=== PATIENT | female | born 1965 | race African-American/Black ===

== ENCOUNTER 2016-10-11 12:00 | Emergency (ER) | payer OTHER ==
[~2016-10-11] VITALS: Ht 157.5 cm; Wt 62.1 kg
[~2016-10-11 12:00] MED LIST: FIORICET1 EA ORAL; IBUPROFEN600 MG ORAL; NORCO 5-325 TA1 EACH PO; PREDNISONE20 MG ORAL; SOMA350 MG PO; TRAMADOL HCL50 MG ORAL; ZITHROMAX500 MG PO
[2016-10-11] MEDS ORDERED: HydrOXYzine 25mg tab ORAL ONE (14:00)
--- NOTE | 2016-10-11 14:01 | Emergency Room Report ---
History of Present Illness General Chief Complaint: Skin Rash/Abscess Source: Patient Present Illness HPI 51-year-old female presents emergency department complaining of itchy and painful rash over the fingers bilaterally x2 weeks. Patient states she's been applying cream however there's been no relief. Patient states that over to the knuckles her skin is cracked open and she is not up-to-date with tetanus. Patient denies discharge or erythema. Patient denies nausea vomiting fevers or chills. Patient denies rash elsewhere on the body.Denies CP, Palpitations, LOC , AMS, dizziness, Changes in Vision, Sensation, paresthesias, or a sudden severe headache. Allergies: Coded Allergies: No Known Allergies (Verified Allergy, Unknown, 06/05/10) Patient History Past Medical History: see triage record Past Surgical History: none Pertinent Family History: none Now: No Immunizations: UTD Reviewed Nursing Documentation: PMH: Agreed, PSxH: Agreed Nursing Documentation-PMH Past Medical History: No Stated History Hx Neurological Problems: Yes - herniated disc Review of Systems All Other Systems: negative except mentioned in HPI Physical Exam Vital Signs Date Time Temp Pulse Resp B/P Pulse Ox O2 Delivery O2 Flow Rate FiO2 10/11/16 12:19 98.1 79 20 155/102 97 Room Air Sp02 EP Interpretation: reviewed, normal General Appearance: no apparent distress, alert, GCS 15, non-toxic Head: normocephalic, atraumatic Eyes: bilateral eye PERRL, bilateral eye normal inspection ENT: hearing grossly normal, normal pharynx, no angioedema, normal voice Neck: full range of motion, supple/symm/no masses Respiratory: chest non-tender, lungs clear, normal breath sounds, speaking full sentences Cardiovascular #1: regular rate, rhythm, no edema, normal capillary refill Genitourinary: no CVA tenderness Musculoskeletal: back normal, gait/station normal, normal range of motion, non- tender Neurologic: alert, oriented x3, responsive, motor strength/tone normal, sensory intact, speech normal Psychiatric: judgement/insight normal, memory normal, mood/affect normal, no suicidal/homicidal ideation Skin: normal color, warm/dry, well hydrated, rash - macerated rash consistent with dyshidrotic eczema noted to the extensor surgace of the digits bilaterally , no evidence of secondary infection at this time, not suggestive of infestation. Lymphatic: no adenopathy Medical Decision Making PA Attestation Dr. Austin is my supervising Physician whom patient management has been discussed with. Diagnostic Impression: Primary Impression: Dyshidrotic dermatitis ER Course 51-year-old female presents emergency department complaining of itchy and painful rash over the fingers bilaterally x2 weeks. Patient states she's been applying cream however there's been no relief. Patient states that over to the knuckles her skin is cracked open and she is not up-to-date with tetanus. Patient denies discharge or erythema. Patient denies nausea vomiting fevers or chills. Ddx considered but are not limited to cellulitis, scabies, shingles, varicella, dermatitis, urticaria, eczema, tinea Vital signs: are WNL, pt. is afebrile H&PE are most consistent with dyshidrotic dermatitis ORDERS: none required at this time, the diagnosis is clinical ED INTERVENTIONS: -Tetanus vaccination administered. DISCHARGE: At this time pt. is stable for d/c to home. Will provide printed patient care instructions, and any necessary prescriptions. Care plan and follow up instructions have been discussed with the patient prior to discharge. Last Vital Signs Date Time Temp Pulse Resp B/P Pulse Ox O2 Delivery O2 Flow Rate FiO2 10/11/16 12:19 98.1 79 20 155/102 97 Room Air Disposition: HOME, SELF-CARE Condition: Stable Scripts Hydroxyzine Hcl (HYDROXYZINE HCL) 25 Mg Tablet 25 MG PO TID, #20 TAB Prov: Meme Nicholas P.A. 10/11/16 Bacitracin Zinc/Polymyx B Sulf (HM DOUBLE ANTIBIOTIC OINTMENT) 28.4 Gm Oint...g. 1 APPLIC TP BID, #28.4 GM Prov: Meme Nicholas P.A. 10/11/16 Hydrocortisone 2% Cream (ANTI-ITCH 2% CREAM) Y Cr 1 APPLIC TP BID, #28 GM Prov: Meme Nicholas P.A. 10/11/16 Triamcinolone Acet (Triamcinolone Acetonide) 15 Gm Cream..g. 1 APPLIC TP BID, #15 GM Prov: Meme Nicholas P.A. 10/11/16 Referrals: [employer]EE [facility],REFERRIN (PCP) Patient Instructions: Eczema, Hand Dermatitis, [id number] Additional Instructions: Take medications as directed. Follow up with PCP in 3-5 days Return sooner to ED if new symptoms occur, or current symptoms become worse. - Please note that this Emergency Department Report was dictated using [employer] tank worker technology software, occasionally this can lead to erroneous entry secondary to interpretation by the dictation equipment. Meme Nicholas Oct 11, 2016 14:01
[2016-10-11] MEDS ORDERED: ANTI-ITCH28 G1 TP (14:02)
[2016-10-11] MEDS ORDERED: KENALOG 0.5% CR15 GM TP (14:02)
[2016-10-11] MEDS ORDERED: HM DOUBLE ANT28.4 G1 TP (14:02)
[2016-10-11] MEDS ORDERED: HYDROXYZINE HCL25 M1 PO (14:06)
[2016-10-11] MEDS ORDERED: TdaP Vaccine 0.5ml Syr IM ONE (14:15)
[2016-10-11 14:25] VITALS: BP 145/86
== END 2016-10-11 14:25 | disposition home or self-care (01) ==
LOC: EMR 13:35
DX: L30.1 Dyshidrosis [pompholyx] (principal); Z23 Encounter for immunization
CPT/HCPCS: 90471; 90715; 99284

== ENCOUNTER 2017-11-09 18:55 | Emergency (ER) | payer MEDICAID, OTHER ==
[~2017-11-09] VITALS: Ht 170.2 cm; Wt 63.5 kg
[~2017-11-09 18:55] MED LIST changes: +ANTI-ITCH28 G1 TP; +HM DOUBLE ANT28.4 G1 TP; +HYDROXYZINE HCL25 M1 PO; +KENALOG 0.5% CR15 GM TP
[2017-11-09 19:15] VITALS: BP 129/83
[2017-11-09] MEDS ORDERED: Dexamethasone 4mg/ml vial IM ONE (19:30)
--- NOTE | 2017-11-09 19:30 | Emergency Room Report ---
History of Present Illness General Chief Complaint: Skin Rash/Abscess Source: Patient Present Illness HPI 52-year-old female presents to the emergency department complaining of itchy rash on the face, and upper extremities times several days. Patient reports that she has had itchy rash on her hand for several weeks before. Patient believes that she may be getting insect bites from her apartment. Denies pain. Denies lesions/rashes elsewhere on the body. Denies new medications or body washes or creams. Denies swelling of the lips, tongue , throat or airway. Denies wheezing, or shortness of breath. Denies recent travel, recent illness or ill contacts. denies blisters, oral lesions, or sloughing of the skin. She denies fevers or chills. Allergies: Coded Allergies: No Known Allergies (Verified Allergy, Unknown, 06/05/10) Patient History Past Medical History: see triage record Past Surgical History: none Pertinent Family History: none Now: No Reviewed Nursing Documentation: PMH: Agreed; PSxH: Agreed Nursing Documentation-PMH Past Medical History: No Stated History Hx Neurological Problems: Yes - herniated disc Review of Systems All Other Systems: negative except mentioned in HPI Physical Exam Vital Signs Date Time Temp Pulse Resp B/P (MAP) Pulse Ox O2 Delivery O2 Flow Rate FiO2 11/09/17 19:00 98.1 85 18 129/83 94 Room Air 98.1 Sp02 EP Interpretation: reviewed, normal General Appearance: no apparent distress, alert, GCS 15, non-toxic Head: normocephalic, atraumatic ENT: hearing grossly normal, no angioedema, normal voice, moist mucus membranes Neck: full range of motion Respiratory: chest non-tender, lungs clear, normal breath sounds, no wheezing, speaking full sentences Cardiovascular #1: regular rate, rhythm, no edema Musculoskeletal: back normal, gait/station normal, normal range of motion, non- tender Neurologic: alert, oriented x3, responsive, motor strength/tone normal, sensory intact, normal gait, speech normal, grossly normal Psychiatric: judgement/insight normal Skin: normal color, warm/dry, well hydrated, rash - generalized papular facial rash on the bilateral cheeks most consistent with urticaria, mild swelling noted just under the nose. pt. has several discrete patches on the right lateral UE and left forearm Lymphatic: no adenopathy Medical Decision Making PA Attestation Dr. Royal is my supervising Physician whom patient management has been discussed with. Diagnostic Impression: Primary Impression: Rash and other nonspecific skin eruption ER Course 52-year-old female presents to the emergency department complaining of itchy rash on the face, and upper extremities times several days. Patient reports that she has had itchy rash on her hand for several weeks before. Patient believes that she may be getting insect bites from her apartment. Denies pain. Denies lesions/rashes elsewhere on the body. Denies new medications or body washes or creams. Denies swelling of the lips, tongue , throat or airway. Denies wheezing, or shortness of breath. Denies recent travel, recent illness or ill contacts. denies blisters, oral lesions, or sloughing of the skin. She denies fevers or chills. Ddx considered but are not limited to cellulitis, scabies, shingles, varicella, dermatitis, urticaria, eczema, tinea, viral exanthem, SJS Vital signs: are WNL, pt. is afebrile H&PE are most consistent with Dermatitis, --generalized papular facial rash on the bilateral cheeks most consistent with urticaria, mild swelling noted just under the nose. pt. has several discrete patches on the right lateral UE and left forearm ORDERS: none required at this time, the diagnosis is clinical ED INTERVENTIONS: -[id number] IM -I do not identify an emergent condition at this time. With current presentation , pt. is stable for close outpatient follow up and conservative treatment. D/ w pt. to return promptly to ED with worsening or new symptoms.- Pt. (and or responsible green party) verbalizes' understanding and agreement with proposed treatment plan.proposed treatment plan. DISCHARGE: At this time pt. is stable for d/c to home. Will provide printed patient care instructions, and any necessary prescriptions. Care plan and follow up instructions have been discussed with the patient prior to discharge. Last Vital Signs Date Time Temp Pulse Resp B/P (MAP) Pulse Ox O2 Delivery O2 Flow Rate FiO2 11/09/17 19:00 98.1 85 18 129/83 94 Room Air 98.1 Disposition: HOME, SELF-CARE Condition: Stable Scripts Hydrocortisone (Hydrocortisone Cream 2.5%) Y Cream.appl 1 APPLIC TP BID, #56.6 GM Prov: Meme Nicholas 11/09/17 Hydroxyzine HCl (Hydroxyzine HCl) 25 Mg Tablet 25 MG ORAL FOUR TIMES A DAY, #30 TAB Prov: Meme Nicholas 11/09/17 Referrals: NON PHYSICIAN (PCP) Patient Instructions: Rash Additional Instructions: Take medications as directed. Follow up with a Primary Care Provider in 3-5 days, even if your symptoms have resolved. --Please review list of primary care clinics, if you do not already have a primary care provider Return sooner to ED if new symptoms occur, or current symptoms become worse. Do not drink alcohol, drive, or operate heavy machinery while taking Hydroxyzine as this may cause drowsiness. - Please note that this Emergency Department Report was dictated using [employer] transcription technology software, occasionally this can lead to erroneous entry secondary to interpretation by the dictation equipment. Meme Nicholas Nov 09, 2017 19:30
[2017-11-09] MEDS ORDERED: ATARAX25 MG ORAL (19:37)
[2017-11-09] MEDS ORDERED: HYDROCORTISONE30 G2 TP (19:37)
[2017-11-09 19:44] VITALS: BP 129/83
== END 2017-11-09 19:45 | disposition home or self-care (01) ==
LOC: EMR 19:19
DX: R21 Rash and other nonspecific skin eruption (principal)
CPT/HCPCS: 96372; 99284; J1100

== ENCOUNTER 2018-01-07 13:31 | Emergency (ER) | payer MEDICAID ==
[~2018-01-07] VITALS: Ht 177.8 cm; Wt 63.5 kg
[~2018-01-07 13:31] MED LIST changes: +ATARAX25 MG ORAL; +HYDROCORTISONE30 G2 TP
[2018-01-07] MEDS ORDERED: LORATADINE10 M2 PO (13:56)
[2018-01-07] MEDS ORDERED: ANTI-ITCH28 G1 TP (13:57)
[2018-01-07 14:17] VITALS: BP 117/77
--- NOTE | 2018-01-07 15:13 | Emergency Room Report ---
History of Present Illness General Chief Complaint: Skin Rash/Abscess Source: Patient Present Illness HPI 52-year-old female presents emergency department complaining of itchy rash 2 weeks to the right hand that radiates up to the forearm and bilateral fingers as well as upper lip. Patient states that she was evaluated previously and was prescribed hydrocortisone which has not been helping her symptoms. Patient states that she continues to be very itchy and that the rash has been progressing. . Denies new medications or body washes or creams. Denies swelling of the lips, tongue , throat or airway. Denies wheezing, or shortness of breath. Denies recent travel, recent illness or ill contacts. denies blisters , oral lesions, or sloughing of the skin. Allergies: Coded Allergies: No Known Allergies (Verified Allergy, Unknown, 06/05/10) Patient History Past Medical History: see triage record Past Surgical History: none Pertinent Family History: none Now: No Reviewed Nursing Documentation: PMH: Agreed; PSxH: Agreed Nursing Documentation-PMH Past Medical History: No History, Except For Hx Neurological Problems: Yes - herniated disc Review of Systems All Other Systems: negative except mentioned in HPI Physical Exam Vital Signs Date Time Temp Pulse Resp B/P (MAP) Pulse Ox O2 Delivery O2 Flow Rate FiO2 01/07/18 13:50 98.5 79 18 117/77 95 Room Air 98.4 Sp02 EP Interpretation: reviewed, normal General Appearance: no apparent distress, alert, GCS 15, non-toxic Head: normocephalic, atraumatic Eyes: bilateral eye normal inspection, bilateral eye PERRL ENT: hearing grossly normal, no angioedema, normal voice, other - mild swelling to the upper lip, erythema noted. no oral lesions. Neck: full range of motion Respiratory: chest non-tender, lungs clear, normal breath sounds, no respiratory distress, no wheezing, speaking full sentences Cardiovascular #1: regular rate, rhythm Musculoskeletal: back normal, gait/station normal, normal range of motion, non- tender Neurologic: alert, oriented x3, responsive, motor strength/tone normal, sensory intact, normal gait, speech normal, grossly normal Psychiatric: judgement/insight normal, anxious - anxious/ agitated Skin: normal color, warm/dry, well hydrated, rash - Hyper pigmented plaques with excoriations noted on the dorsal fingers/hands bilaterally with some radiation up into the forearms bilaterally. Patient also has plaque noted on the face. No papules, vesicles, pustules, blisters. No erythema or increased to palpation. skin is very dry in appearance. Lymphatic: no adenopathy Medical Decision Making PA Attestation Dr. Austin is my supervising Physician whom patient management has been discussed with. Diagnostic Impression: Primary Impression: Rash and other nonspecific skin eruption Additional Impression: Dyshidrosis ER Course 52-year-old female presents emergency department complaining of itchy rash 2 weeks to the right hand that radiates up to the forearm and bilateral fingers as well as upper lip. Patient states that she was evaluated previously and was prescribed hydrocortisone which has not been helping her symptoms. Patient states that she continues to be very itchy and that the rash has been progressing. . Denies new medications or body washes or creams. Denies swelling of the lips, tongue , throat or airway. Denies wheezing, or shortness of breath. Denies recent travel, recent illness or ill contacts. denies blisters , oral lesions, or sloughing of the skin. Ddx considered but are not limited to cellulitis, scabies, shingles, varicella, dermatitis, urticaria, eczema, tinea, viral exanthem, SJS Vital signs: are WNL, pt. is afebrile H&PE are most consistent with Dyshidrotic eczema and dermatitis, will give medication to treat for scabies although appearance is more consistent with eczema.--Hyper pigmented plaques with excoriations noted on the dorsal fingers/ hands bilaterally with some radiation up into the forearms bilaterally. Patient also has plaque noted on the face. No papules, vesicles, pustules, blisters. No erythema or increased to palpation. skin is very dry in appearance. I do not suspect anaphylaxis or impending airway compromise. ORDERS: none required at this time, the diagnosis is clinical ED INTERVENTIONS: -Prednisone PO -I do not identify an emergent condition at this time. With current presentation , pt. is stable for close outpatient follow up and conservative treatment. D/ w pt. to return promptly to ED with worsening or new symptoms.- Pt. verbalizes ' understanding and agreement with proposed treatment plan.proposed treatment plan. Discussed with this patient the need for dermatology evaluation were definitive diagnosis. DISCHARGE: At this time pt. is stable for d/c to home. Will provide printed patient care instructions, and any necessary prescriptions. Care plan and follow up instructions have been discussed with the patient prior to discharge. Last Vital Signs Date Time Temp Pulse Resp B/P (MAP) Pulse Ox O2 Delivery O2 Flow Rate FiO2 01/07/18 14:17 98.4 75 18 117/77 95 Room Air 98.4 Disposition: HOME, SELF-CARE Condition: Stable Scripts Permethrin* (ELIMITE*) 60 Gm Cream..g. 1 APPLIC TOPIC ONCE, #60 GM 0 Refills Apply cream from head to toe; leave on for 8-14 hours before washing off with water; may reapply in 1 week if live mites appear. Prov: Meme Nicholas 01/07/18 Fluocinonide (FLUOCINONIDE) 60 Gm Gel..gram. 1 APPLIC TP BID, #60 GM Prov: Meme Nicholas 01/07/18 Prednisone* (PREDNISONE*) 20 Mg Tablet 40 MG ORAL DAILY for 5 Days, #10 TAB Prov: Meme Nicholas 01/07/18 Patient Instructions: Rash Additional Instructions: Take medications as directed. Follow up with a [facility] ST[employer] W[employer]ER in 3-5 days, even if your symptoms have resolved. --Please review list of primary care clinics, if you do not already have a primary care provider Return sooner to ED if new symptoms occur, or current symptoms become worse. - Please note that this Emergency Department Report was dictated using [email or web address] maintenance technology software, occasionally this can lead to erroneous entry secondary to interpretation by the dictation equipment. Meme Nicholas Jan 07, 2018 15:12
[2018-01-07] MEDS ORDERED: PERMETHRIN60 GM TOPIC (15:16)
[2018-01-07] MEDS ORDERED: PREDNISONE20 MG ORAL (15:16)
[2018-01-07] MEDS ORDERED: FLUOCINONIDE TP (15:16)
[2018-01-07 15:25] VITALS: BP 117/77
== END 2018-01-07 15:31 | disposition home or self-care (01) ==
LOC: EMR 14:16
DX: R21 Rash and other nonspecific skin eruption (principal); L30.1 Dyshidrosis [pompholyx]
CPT/HCPCS: 99284; J7512

== ENCOUNTER 2018-03-21 01:59 | Emergency (ER) | payer MEDICAID ==
[~2018-03-21] VITALS: Ht 157.5 cm; Wt 61.2 kg
[~2018-03-21 01:59] MED LIST changes: +FLUOCINONIDE TP; +LORATADINE10 M2 PO; +PERMETHRIN60 GM TOPIC
[2018-03-21 02:17] VITALS: BP 161/98
--- NOTE | 2018-03-21 02:21 | Emergency Room Report ---
History of Present Illness General Chief Complaint: Upper Extremity Injury Source: Patient Present Illness HPI Patient is a 52-year-old female who presented after increased right wrist pain. Patient reports having her right wrist while playing dominant. She reports having previous fracture to the area. She states that she had the been having increased pain since the injury which occurred approximately 3 days prior to arrival. Patient presented at 2:00 in the morning. The patient was having sharp pain. She reports having previous the been taking Tylenol with codeine as well as meloxicam. She reportedly is in pain management due to chronic pain issues in her low back. Allergies: Coded Allergies: No Known Allergies (Verified Allergy, Unknown, 06/05/10) Patient History Past Medical History: see triage record Last Menstrual Period: none Reviewed Nursing Documentation: PMH: Agreed; PSxH: Agreed Nursing Documentation-PMH Hx Neurological Problems: Yes - herniated disc Review of Systems All Other Systems: negative except mentioned in HPI Physical Exam Vital Signs Date Time Temp Pulse Resp B/P (MAP) Pulse Ox O2 Delivery O2 Flow Rate FiO2 03/21/18 02:07 98.0 78 18 161/98 98 Room Air 98.1 General Appearance: well appearing, no apparent distress, alert, GCS 15 Head: normocephalic, atraumatic ENT: hearing grossly normal, normal voice Neck: full range of motion, supple Respiratory: lungs clear, normal breath sounds, no respiratory distress, speaking full sentences Cardiovascular #1: normal peripheral pulses, regular rate, rhythm, no edema Musculoskeletal: normal inspection, back normal, gait/station normal Neurologic: normal inspection, alert, oriented x3, normal gait Psychiatric: mood/affect normal Skin: normal inspection, normal color, no rash Medical Decision Making Diagnostic Impression: Primary Impression: Chronic pain Additional Impression: Contusion of wrist, right ER Course Patient presented for wrist pain. Differential diagnosis included fracture, dislocation, scapphoid fracture, sprain, ganglion cyst, septic joint , arthritis, abscess among others. Wrist Xray was ordered. The patient appears to have some chronic pain to the wrist.The patient is given topical lidocaine. The patient appears to have good perfusion and shows no evidence of vascular compromise.X-ray imaging of the left wrist 3 views interpreted by me showed healed fracture without evident acute fracture, dislocation or malalignment. The patient placed in a removable splint. The patient is advised that she may need MRI if pain persisted. Advised to discontinue smoking. Last Vital Signs Date Time Temp Pulse Resp B/P (MAP) Pulse Ox O2 Delivery O2 Flow Rate FiO2 03/21/18 02:07 98.0 78 18 161/98 98 Room Air 98.1 Status: improved Disposition: HOME, SELF-CARE Condition: Stable Scripts Diclofenac Sodium (VOLTAREN) 100 Gm Gel..gram. 100 GM TP DAILY, #100 GM Prov: Yong Rivera MD 03/21/18 Yong Rivera MD Mar 21, 2018 02:21
[2018-03-21] MEDS ORDERED: VOLTAREN100 G1 TP (02:46)
[2018-03-21 02:55] VITALS: BP 161/98
--- NOTE | 2018-03-21 12:09 | Diagnostic Imaging Report ---
Indication: Pain Technique: XRAY Wrist Complete R Comparison: Right forearm radiograph of 03/05/2010 and right hand radiographs of 12/28/2025 Findings: There is a remote/healed fracture deformity of the distal ulna. No acute fracture identified. Radiocarpal articulation appears preserved. No radiopaque foreign body. Impression: No evidence of acute fracture or dislocation. Old/healed fracture deformity of the distal ulna.
== END 2018-03-21 02:59 | disposition home or self-care (01) ==
LOC: EMR 02:19
DX: S60.211A Contusion of right wrist, initial encounter (principal); G89.29 Other chronic pain; F17.200 Nicotine dependence, unspecified, uncomplicated; W22.8XXA Striking against or struck by other objects, initial encounter; Y93.89 Activity, other specified; Y92.89 Other specified places as the place of occurrence of the external cause
CPT/HCPCS: 99283

== ENCOUNTER 2018-06-14 13:53 | Emergency (ER) | payer MEDICAID ==
[~2018-06-14] VITALS: Ht 157.5 cm; Wt 59.0 kg
[~2018-06-14 13:53] MED LIST changes: +VOLTAREN100 G1 TP
[2018-06-14] MEDS ORDERED: GABAPENTIN100 MG ORAL (14:09)
[2018-06-14 14:15] VITALS: BP 133/92
--- NOTE | 2018-06-14 14:42 | Emergency Room Report ---
History of Present Illness General Chief Complaint: Skin Rash/Abscess Source: Patient, Medical Record Present Illness HPI 52-year-old female presents emergency department complaining of chronic persistent itchy rash 4 months on bilateral hands, bilateral A/C areas and intermittently on her face. Pt. denies fevers, chills or swollen tender lymph nodes. Denies pain. Denies lesions/rashes elsewhere on the body. Denies new medications or body washes or creams. Denies swelling of the lips, tongue , throat or airway. Denies wheezing, or shortness of breath. Denies recent travel , recent illness or ill contacts. denies blisters, oral lesions, or sloughing of the skin. She reports that she did receive referral to dermatology from her PCP however she is made multiple attempts to obtain an appointment however the boat engines installer has been "booked up'. Allergies: Coded Allergies: No Known Allergies (Verified Allergy, Unknown, 06/05/10) Patient History Past Medical History: see triage record Past Surgical History: none Pertinent Family History: none Last Menstrual Period: 2016 Immunizations: UTD Reviewed Nursing Documentation: PMH: Agreed; PSxH: Agreed Nursing Documentation-PMH Past Medical History: No History, Except For Hx Neurological Problems: No - herniated disc Review of Systems All Other Systems: negative except mentioned in HPI Physical Exam Vital Signs Date Time Temp Pulse Resp B/P (MAP) Pulse Ox O2 Delivery O2 Flow Rate FiO2 06/14/18 14:05 98.1 89 16 133/92 95 Room Air Sp02 EP Interpretation: reviewed, normal General Appearance: no apparent distress, alert, GCS 15, non-toxic Head: normocephalic, atraumatic Eyes: bilateral eye normal inspection, bilateral eye PERRL ENT: hearing grossly normal, no angioedema, normal voice, other - no swelling of the lips or tongue Neck: full range of motion Respiratory: chest non-tender, lungs clear, normal breath sounds, no wheezing, speaking full sentences Cardiovascular #1: regular rate, rhythm, normal capillary refill Musculoskeletal: back normal, gait/station normal, normal range of motion, non- tender Neurologic: alert, oriented x3, responsive, motor strength/tone normal, sensory intact, speech normal, grossly normal Psychiatric: judgement/insight normal Skin: normal color, warm/dry, well hydrated, rash - hyperpigmented plaques and papules on the left palm, interdigital spaces, the dorsum of the hands bilaterally, the A/C area and on the face. no blisters or vessicles. Lymphatic: no adenopathy Medical Decision Making PA Attestation Dr. Austin is my supervising Physician whom patient management has been discussed with. Diagnostic Impression: Primary Impression: Rash and other nonspecific skin eruption ER Course 52-year-old female presents emergency department complaining of chronic persistent itchy rash 4 months on bilateral hands, bilateral A/C areas and intermittently on her face. Pt. denies fevers, chills or swollen tender lymph nodes. Denies pain. Denies lesions/rashes elsewhere on the body. Denies new medications or body washes or creams. Denies swelling of the lips, tongue , throat or airway. Denies wheezing, or shortness of breath. Denies recent travel , recent illness or ill contacts. denies blisters, oral lesions, or sloughing of the skin. She reports that she did receive referral to dermatology from her PCP however she is made multiple attempts to obtain an appointment however the boat engines installer has been "booked up'. Pt. states previously she was given permethrin which did give her temporary relief for several days before return of her symptoms. Pt. reports taking several rounds of oral and topical steroids in addition to abx and none have provided relief except for Permethrin. Ddx considered but are not limited to cellulitis, scabies, shingles, varicella, dermatitis, urticaria, eczema, tinea, viral exanthem, SJS Vital signs: are WNL, pt. is afebrile H&PE are most consistent with chronic dermatitis of unknown cause, will treat with antifungal as this has not been tried. No evidence to suggest impending airway compromise or anaphylaxis. Pt. otherwise non-toxic in appearance. ORDERS: none required at this time, the diagnosis is clinical ED INTERVENTIONS: None required at this time. DISCHARGE: At this time pt. is stable for d/c to home. Will provide printed patient care instructions, and any necessary prescriptions. Care plan and follow up instructions have been discussed with the patient prior to discharge. Last Vital Signs Date Time Temp Pulse Resp B/P (MAP) Pulse Ox O2 Delivery O2 Flow Rate FiO2 06/14/18 14:15 98.1 85 16 133/92 95 Room Air Disposition: HOME, SELF-CARE Condition: Stable Scripts Permethrin* (ELIMITE*) 60 Gm Cream..g. 1 APPLIC TOPIC ONCE, #60 GM 0 Refills Apply cream from head to toe; leave on for 8-14 hours before washing off with water; may reapply in 1 week if live mites appear. Prov: Meme Nicholas 06/14/18 Ketoconazole (Ketoconazole) 15 Gm Cream..g. 1 APPLIC TOPIC BID, #15 APPLIC 2 Refills Prov: Meme Nicholas 06/14/18 Referrals: NON PHYSICIAN (PCP) Patient Instructions: Rash Additional Instructions: Take medications as directed. Follow up with a Primary Care Provider in 3-5 days for DERMATOLOGY REFERRAL , even if your symptoms have resolved. --Please review list of primary care clinics, if you do not already have a primary care provider Return sooner to ED if new symptoms occur, or current symptoms become worse. - Please note that this Emergency Department Report was dictated using [employer] agent technology software, occasionally this can lead to erroneous entry secondary to interpretation by the dictation equipment. Meme Nicholas Jun 14, 2018 14:42
[2018-06-14] MEDS ORDERED: NIZORAL 2% C1 APPLIC TOPIC (14:45)
[2018-06-14] MEDS ORDERED: PERMETHRIN60 GM TOPIC (14:45)
[2018-06-14 15:20] VITALS: BP 133/92
== END 2018-06-14 15:20 | disposition home or self-care (01) ==
LOC: EMR 14:27
DX: R21 Rash and other nonspecific skin eruption (principal)
CPT/HCPCS: 99283